=== PATIENT | female | born 1990 | race Caucasian/White ===

== ENCOUNTER 2020-03-30 12:50 | Outpatient (REF) | payer OTHER, SELFPAY | END 2020-03-30 12:51 | disposition home or self-care (01) | LOC: HO.LAB 12:50 | PROVIDERS: Visit Provider Internal Medicine | DX: Z20.828 Contact with and (suspected) exposure to other viral communicable diseases (principal) | CPT/HCPCS: C9803; U0003 ==

== ENCOUNTER 2020-06-22 03:38 | Emergency (ER) | payer OTHER, SELFPAY ==
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
[2020-06-22 03:50] VITALS: BP 127/81; PULSE 106; RESP 18; TEMP 36.8; O2SAT 98; BMI 26.4
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
== END 2020-06-22 06:46 ==
PROVIDERS: Emergency Provider Student in an Organized Health Care Education/Training Program
DX: S80.211A Abrasion, right knee, initial encounter (principal); S00.81XA Abrasion of other part of head, initial encounter; S00.83XA Contusion of other part of head, initial encounter; S20.212A Contusion of left front wall of thorax, initial encounter; S60.221A Contusion of right hand, initial encounter; Y04.2XXA Assault by strike against or bumped into by another person, initial encounter; Y93.9 Activity, unspecified; Y92.019 Unspecified place in single-family (private) house as the place of occurrence of the external cause; Y99.9 Unspecified external cause status
CPT/HCPCS: 70450; 70486; 72125; 73564; 99283; 99284

== ENCOUNTER 2022-11-05 10:32 | Emergency (ER) | payer OTHER, SELFPAY ==
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
[2022-11-05 10:38] VITALS: BP 144/94; PULSE 94; RESP 20; TEMP 36.6; O2SAT 97; BMI 24.8
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
[2022-11-05 11:17] LABS: Appearance Urine Cloudy; Color Urine Yellow; Glucose Urine UA Negative (Negative); Leukocyte Esterase Urine Moderate (2+) (Negative); Nitrite Urine Negative (Negative); PH 5.5 (5.0-9.0); Specific Gravity - Urine 1.025 (1.005-1.025); UMIC TRIGGER UACC YES; Urine Blood Large (3+) (Negative); Urine Ketones Trace mg/dL (Negative); Urine Protein 30 (1+) mg/dL (Neg-Trace)
[2022-11-05 11:21] LABS: UPreg QC Valid YES; Urine Pregnancy NEGATIVE (NEGATIVE)
[2022-11-05 11:23] LABS: Bacteria Urine 1+ (None Seen); RBC Urine >20 /HPF (0-2); UACC Culture Trigger YES; WBC Urine 21-50 /HPF (0-5)
[2022-11-05] MEDS: Lidocaine 4 % Patch ADH..PATCH 1 PATCH TRANSDERMA (11:39)
[2022-11-05] MEDS: Ketorolac Tromethamine 15 MG/ML VIAL 30 MG IM (11:39)
[2022-11-05 15:07] VITALS: BP 131/91; PULSE 82; RESP 18; TEMP 36.6; O2SAT 100
== END 2022-11-05 15:41 | disposition home or self-care (01) ==
PROVIDERS: Physician Assistant; Emergency Provider Emergency Medicine
DX: S32.029A Unspecified fracture of second lumbar vertebra, initial encounter for closed fracture (principal); S32.039A Unspecified fracture of third lumbar vertebra, initial encounter for closed fracture; S09.90XA Unspecified injury of head, initial encounter; S00.91XA Abrasion of unspecified part of head, initial encounter; N39.0 Urinary tract infection, site not specified; M54.16 Radiculopathy, lumbar region; Y04.2XXA Assault by strike against or bumped into by another person, initial encounter; Y93.9 Activity, unspecified; Y92.9 Unspecified place or not applicable; Y99.9 Unspecified external cause status
CPT/HCPCS: 74176; 81001; 81025; 87086; 96372; 99283; 99284; J1885

== ENCOUNTER 2024-08-15 09:44 | Emergency (ER) | payer OTHER, SELFPAY ==
[2024-08-15 09:55] VITALS: BP 129/69; PULSE 87; RESP 16; TEMP 36.6; O2SAT 100; BMI 25.7
--- NOTE | 2024-08-15 14:31 | ED_ITS ---
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 Patient states that over the last week she has had right sided ear pain after recently swimming. Patient denies any dizziness, lightheadedness, abdominal pain, nausea, vomiting, fever, chills, blurry vision, double vision, loss of vision, chest pain, difficulty breathing, shortness of breath, back pain, night sweats, pain with urination, increased urinary frequency, increased urinary urgency, blood in her urine or stool, syncope or a near syncopal episode, recent trauma or falls, bowel incontinence, bladder incontinence, or any other complaints at this time. Onset (ago): week(s) (1) Location: right (ear) Relieving factors: none Exacerbating factors: none Associated symptoms: denies other symptoms Treatments prior to arrival: none Related Data Previous Rx's ?Medication ?Instructions ?Recorded cefuroxime axetil 250 mg tablet 250 mg PO BID 7 days #14 tabs 11/05/22 cyclobenzaprine 10 mg tablet 10 mg PO BEDTIME PRN muscle spasm 11/05/22 #7 tabs ketorolac 10 mg tablet 10 mg PO TID PRN pain 5 days #15 11/05/22 tabs lidocaine 5 % topical patch 1 patch topical DAILY PRN pain #15 11/05/22 ea amoxicillin 875 mg tablet 875 mg PO BID 5 days #10 tabs 08/15/24 ciprofloxacin 0.3 %-dexamethasone 4 drp otic (ear) left BID 7 days 08/15/24 0.1 % ear drops,suspension #7.5 mL Allergies Allergy/AdvReac Type Severity Reaction Status Date / Time No Known Allergies Allergy Mild NOT Verified 08/15/24 09:59 APPLICABLE Review of Systems Constitutional: Constitutional: Reports no additional constitutional complaints, Denies chills, Denies fever(s) and Denies night sweats Eyes: Eyes: Reports no additional eye complaints, Denies blurry vision, Denies change in vision, Denies diplopia, Denies eye discharge, Denies loss of vision and Denies eye pain ENT: Denies dizziness Comments: right ear pain Cardiovascular: Cardiovascular: Reports no additional cardiovascular complaints, Denies chest pain, Denies lightheadedness, Denies Loss of Consciousness and Denies dyspnea Respiratory: Respiratory: Reports no additional respiratory complaints and Denies dyspnea Gastrointestinal: Gastrointestinal: Reports no additional gastrointestinal complaints, Denies abdominal pain, Denies melena, Denies hematochezia, Denies change in bowel habits and Denies change in stool character Genitourinary: Genitourinary: Denies hematuria, Denies urinary frequency, Denies dysuria, Denies urinary incontinence, Denies urinary hesitancy and Denies urinary urgency Musculoskeletal: Musculoskeletal: Reports no additional musculoskeletal complaints, Denies numbness and Denies tingling Neurologic: Denies dizziness, Denies loss of vision, Denies numbness and Denies tingling Psychiatric: Psychiatric: Reports no additional psychiatric complaints Endocrine: Endocrine: Reports no additional endocrine complaints Hematologic/Lymphatic: Hematologic/Lymphatic: Reports no additional hematologic/lymphatic complaints Allergic/Immunologic: Allergic/Immunologic: Reports no additional al lergic/immunologic complaints PMFSH Past Medical History Attestation statement: The following information was validated with the patient. Source: old records reviewed and nursing notes reviewed Social History Social History Advance Directives: No Advance Directives Information Provided: Yes Do you have a plan to hurt others: No Plan Physical Exam ED Vital Signs: Vital Signs - 24 hr 08/15/24 09:55 08/15/24 14:35 Temperature 97.9 F 97.9 F Pulse Rate 87 87 Respiratory Rate 16 16 Blood Pressure 129/69 129/69 Pulse Oximetry 100 100 Oxygen Delivery Method Room Air Room Air BMI result Body Mass Index 25.7 Const General: cooperative, no acute distress, alert and awake Nutritional Appearance: well nourished Orientation/consciousness: patient oriented x3 Limitations: no limitations HENMT Head: Yes normal to inspection and Yes atraumatic Ears: hearing grossly normal bilaterally, external ears normal, Abnormal EAC present erythema on the right and EAC tenderness on the right and TM abnormal erythematous on the right General nose exam: Normal external nose present, no nasal discharge noted and no epistaxis Face and sinus: Yes normal facial exam, No abrasion and No laceration Mouth: Normal oral and palatal mucosa present, no drooling and no muffled voice Eyes General: appearance normal, both eyes and all related structures Periorbital: periorbital findings normal Eyelids: Yes eyelids normal Conjunctivae: conjunctivae normal Pupils: Equal, round and reactive pupils present EOM: EOMs intact bilaterally Neck Neck: Yes normal visual inspection, Yes full ROM and Yes no lymphadenopathy Chest Chest palpation & inspection: normal inspection of the chest Resp Effort & Inspection: normal respiratory effort and able to speak in complete sentences GI Inspection: Yes normal to inspection Neuro General: patient oriented x3, moves all extremities and CN's II-XI intact bilaterally Cranial nerves: Yes Equal, round and reactive pupils present Cognition (Neuro): normal cognition Extrem General: Yes normal to inspection, Yes full ROM and Yes capillary refill normal Psych Appearance: grossly normal Mental Status: mental status grossly normal Affect: normal affect Attitude: cooperative Thought process: Normal thought process present Thought content: Normal thought content present Insight: Good insight present (Psych) Medical Decision Making Medical Decision Making MDM Narrative: Patient is a 34 year old assigned female at with no reported medical history presenting to the emergency department today with right sided ear pain. Patient's physical exam was as noted in the physical exam portion of this note and most consistent with otitis media and otitis externa. I explained my physical exam findings to the patient. I answered all questions asked by the patient. I stressed the importance of the patient taking her medication as directed (either prescribed or as the over the counter packaging recommends). I stressed the importance of the patient following up with her primary care provider. I stressed the importance of the patient returning to the emergency department immediately if her symptoms were to worsen or if she were to develop any dizziness, shortness of breath, difficulty breathing, chest pain, blurry vision, loss of vision, nausea, vomiting, abdominal pain, fever, chills, back pain, or any other complaints. Patient verbalized agreement and understanding with this treatment plan and discharge. Differential Diagnosis Differential Diagnoses: The differential diagnosis associated with the presentation includes Otitis media Otitis externa Admission/Observation Consideration of admission/observation: Escalation of care including admission/observation considered Patient would have been admitted to the hospital had her clinical presentation warranted hospital admission. Prescription Management I considered prescription management with: Antibiotic (patient prescribed antibiotics for R OM and OE) Discharge Plan Discharge Clinical Impression: Otitis externa, Otitis media Patient Disposition: Home, Self-Care Instructions: Otitis Externa (DC), How to Use Ear Drops (ED), Ear Infection (ED) Additional Instructions: Follow up with your primary care provider. Return to the emergency department immediately if your symptoms worsen or if you develop any dizziness, shortness of breath, difficulty breathing, chest pain, blurry vision, loss of vision, nausea, vomiting, abdominal pain, fever, chills, back pain, or any other complaints. Marylou?seguimiento?con de santiago m?dico de atenci?n primaria. Acuda inmediatamente al servicio de urgencias si soo s?ntomas empeoran o si presenta falta de aliento, dificultad para respirar, dolor tor?cico, mareos, aturdimiento, dolor de espalda, dolor abdominal, fiebre, escalofr?os o cualquier otro s?ntoma. Please see the information below about our Patient Portal. If you are not yet enrolled in the [facility] Patient Portal, you will receive an enrollment email invitation following your visit to any [facility] care setting. You may also self-enroll in the Patient Portal by visiting our website: [email or web address] The following information is required to access the Patient Portal: - Your [facility] Medical Record Number - Your personal home email address (must match what is in your electronic medical record, Registration staff can assist with this) - Name - Date of Capabilities of the Patient Portal: - Message some providers - View upcoming appointments - Access your health summary, medical history, and visit history - View current conditions and allergies - View procedure and lab results - View your medications, including guidelines, side effects, and precautions - Complete pre-appointment questionnaires requested by your provider - Ready summary reports of your office visits and procedures To access the Patient Portal Mobile Lizandro, follow these directions: - Search Milo in the Lizandro Store or [employer] Store - Download the Lizandro - Search for [facility] - Enter your login/password Portal del paciente Si usted no esta inscrito en el portal de pacientes de [facility], recibira estela invitacion de inscripcion despues de de santiago visita al [facility] o al [facility] via correo electronico. Tambien puede inscribirse voluntariamente en el portal de pacientes visitando nuestra pagina web: [email or web address] La siguiente informacion sera requerida para acceder al portal: - De Santiago bob de historia medica de [facility] - De Santiago direccion de correo electronico personal - Nombre - Fecha de nacimiento Capacidades: Las siguientes capacidades estan disponibles en el portal de pacientes: - Enviar mensajes a algunos doctores - Verificar proximas citas - Acceso a de santiago historial de zoila, registro medico e historial de visitas - Tamika las condiciones actuales y alergias tamika procedimientos y resultados del laboratorio - Tamika soo medicamentos, incluyendo las pautas - Efectos secundarios y precauciones - Completar o llenar formularios / cuestionarios de - Citas solicitadas por de santiago doctor - Leer los resumenes de reportes medicos de soo visitas y procedimientos Catie acceder a la aplicacion movil: - Busque Milo en la Lizandro Store o [employer] Store - Descargue la aplicacion - Busque [facility] - Ingrese de santiago nombre de usuario / Contrasena Prescriptions: New ciprofloxacin-dexamethasone 0.3-0.1 % drops,suspension 4 drp otic (ear) left BID 7 Days Qty: 7.5 0RF amoxicillin 875 mg tablet 875 mg PO BID 5 Days Qty: 10 0RF No Action cyclobenzaprine 10 mg tablet 10 mg PO BEDTIME PRN (Reason: muscle spasm) Qty: 7 0RF ketorolac 10 mg tablet 10 mg PO TID PRN (Reason: pain) 5 Days Qty: 15 0RF lidocaine 5 % adhesive patch,medicated 1 patch topical DAILY PRN (Reason: pain) Qty: 15 0RF Rx Instructions: leave on most painful area for up to 12 hrs cefuroxime axetil 250 mg tablet 250 mg PO BID 7 Days Qty: 14 0RF Referrals: [facility] Family Medicine [Provider Group] (Call to establish and follow up with a primary care provider. If you already have a primary care provider, please follow up with them. Telefone para estabelecer e fazer o acompanhamento com um prestador de cuidados prim?thurman. Se j? tiver um prestador de cuidados prim?thurman, contacte-o.) [facility] Primary CareTiff [Provider Group] (Call to establish and follow up with a primary care provider. If you already have a primary care provider, please follow up with them. Telefone para estabelecer e fazer o acompanhamento com um prestador de cuidados prim?thurman. Se j? tiver um prestador de cuidados prim?thurman, contacte-o.) [facility] Primary Care[facility] [Provider Group] (Call to establish and follow up with a primary care provider. If you already have a primary care provider, please follow up with them. Telefone para estabelecer e fazer o acompanhamento com um prestador de cuidados prim?thurman. Se j? tiver um prestador de cuidados prim?thurman, contacte-o.) [facility] Primary CareMahendra [Provider Group] (Call to establish and follow up with a primary care provider. If you already have a primary care provider, please follow up with them. Telefone para estabelecer e fazer o acompanhamento com um prestador de cuidados prim?thurman. Se j? tiver um prestador de cuidados prim?thurman, contacte-o.) Stand Alone Forms: Work/School Release Interventions: ED Discharge Assessment Last Done: 08/15/24 14:35 Discharge Date/Time: 08/15/24 14:36 Print Language: Yi
[2024-08-15 14:35] VITALS: BP 129/69; PULSE 87; RESP 16; TEMP 36.6; O2SAT 100
== END 2024-08-15 14:36 | disposition home or self-care (01) ==
PROVIDERS: Emergency Provider Emergency Medicine
DX: H92.01 Otalgia, right ear (principal); H60.91 Unspecified otitis externa, right ear; H66.91 Otitis media, unspecified, right ear
CPT/HCPCS: 99282; 99283

== ENCOUNTER 2024-08-20 12:31 | Emergency (ER) | payer OTHER, SELFPAY ==
[2024-08-20 12:42] VITALS: BP 137/90; PULSE 87; RESP 16; TEMP 36.6; O2SAT 100; BMI 22.3
--- NOTE | 2024-08-20 12:45 | ED_ITS ---
HPI - General Adult General Chief complaint: Ear Problems Stated complaint: Right ear pain Time Seen by Provider: 08/20/24 12:59 Source: patient, RN notes reviewed and old records reviewed Mode of arrival: ambulatory History of Present Illness ED Provider: She Dobson PA-C [facility] narrative: 34-year-old Citizen Of [place]-speaking female with past medical history of recently diagnosed otitis media and externa currently on Augmentin and Ciprodex drops since 08/15/2024 after ED evaluation, presenting to the ED complaining of persistent right ear pain no radiating to right jaw. Admits to getting wax out at home performed by friend. Reports ear feels blocked. Denies fever, chills, recent dental procedures, difficulty or inability to swallow Related Data Previous Rx's ?Medication ?Instructions ?Recorded cefuroxime axetil 250 mg tablet 250 mg PO BID 7 days #14 tabs 11/05/22 cyclobenzaprine 10 mg tablet 10 mg PO BEDTIME PRN muscle spasm 11/05/22 #7 tabs ketorolac 10 mg tablet 10 mg PO TID PRN pain 5 days #15 11/05/22 tabs lidocaine 5 % topical patch 1 patch topical DAILY PRN pain #15 11/05/22 ea amoxicillin 875 mg tablet 875 mg PO BID 5 days #10 tabs 08/15/24 ciprofloxacin 0.3 %-dexamethasone 4 drp otic (ear) left BID 7 days 08/15/24 0.1 % ear drops,suspension #7.5 mL Allergies Allergy/AdvReac Type Severity Reaction Status Date / Time No Known Allergies Allergy Mild NOT Verified 08/20/24 12:45 APPLICABLE Review of Systems Review of Systems: Yes all other systems are reviewed and are negative Constitutional: Constitutional: Reports as per [facility] Past Medical History Attestation statement: The following information was validated with the patient. Source: old records reviewed Social History Social History Advance Directives: No Advance Directives Information Provided: No Do you have a plan to hurt others: No Plan Physical Exam ED Vital Signs: Vital Signs - 24 hr 08/20/24 12:42 08/20/24 16:08 Temperature 97.8 F 98.1 F Pulse Rate 87 88 Respiratory Rate 16 18 Blood Pressure 137/90 H 138/88 Pulse Oximetry 100 99 Oxygen Delivery Method Room Air Room Air BMI result Body Mass Index 22.3 Const General: cooperative, healthy appearing and no acute distress Orientation/consciousness: patient oriented x3 Limitations: no limitations HENMT Head: Yes normal to inspection and Yes atraumatic Ears: hearing grossly normal bilaterally, mastoids normal, Abnormal EAC present cerumen impaction on the right and excessive cerumen, external ear abnormal auricular tenderness and unable to visualize TM on the right (Due to cerumen impaction) General nose exam: Normal external nose present Face and sinus: Yes normal facial exam Mouth: Normal oral and palatal mucosa present and no drooling Throat: Yes posterior oropharynx normal, Yes tonsils normal, Yes uvula midline, No peritonsillar mass, No uvula laterally displaced and No uvular edema Eyes General: appearance normal, both eyes and all related structures EOM: EOMs intact bilaterally Neck Neck: Yes normal visual inspection and Yes no meningeal signs Resp Effort & Inspection: normal respiratory effort and no respiratory distress Cardio Rate: regular rate Skin Rashes: no rashes Wounds: no wounds Neuro General: patient oriented x3, tone normal and no meningeal signs Cranial nerves: Yes CN's II-XII intact bilaterally Gait exam (Neuro): Normal gait present Extrem General: Yes normal to inspection Course Course Course Narrative: This is a rapid medical exam performed by Aure Angel NP: Additional HPI, ROS, PE not included below will be deferred to primary provider. 08/20/24 12:45 Patient is a 34-year-old Citizen Of [place] speaking female presenting with ongoing R ear pain, starting to radiate to neck. Seen here on 08/15, d/c'd on ciprodex drops and amoxicillin no improvement. Friend states he candled patient's ear twice with significant amount of wax removed. Unable to visualize TM in triage due to cerumen impaction. -ear wax partially removed with curette and irrigation. Large amount of cerumen impaction still appreciated. Will soak with Colace >1600--multiple attempts performed to remove cerumen impaction, moderate amount of cerumen removed however large amount still retained. Recommended ENT follow-up. Patient can finish course of p.o. and topical antibiotics as previously prescribed although less likely symptoms related to infection and father due to cerumen impaction Results discussed with patient including worrisome signs and symptoms and strict return precautions, and when to return to the emergency department. They verbalized understanding and feel safe for discharge at this time. Medications Administered Discontinued Medications Generic Name Dose Route Start Last Admin Trade Name Aline PRN Reason Stop Dose Admin Docusate Sodium 100 mg 08/20/24 14:06 08/20/24 14:48 Docusate Sodium 100 Mg/10 Ml Liquid PO 08/20/24 14:07 100 mg ONCE ONE Administration Procedures Ear Wax Removal Right Ear: Cerumenolytic Used: Colace and 5-10% Sodium Bicarb solution Results: Re-examined: some cerumen remains and removal reattempted TM Examination: other (unable to visualize TM) Patient Tolerated Procedure: well and no complications Complications: no problems Technique: ear canal irrigated and ear canal curetted Medical Decision Making Medical Decision Making MDM Narrative: 34-year-old Citizen Of [place]-speaking female with past medical history of recently diagnosed otitis media and externa currently on Augmentin and Ciprodex drops since 08/15/2024 after ED evaluation, presenting to the ED complaining of persistent right ear pain no radiating to right jaw. On exam vital signs stable, NAD, nontoxic appearing, physical exam as noted above with appreciable cerumen impaction on the right. + auricle and external ear tenderness. No mastoid tenderness or erythema. Concern for cerumen impaction causing discomfort. Low suspicion for mastoiditis, chronic otitis externa Plan: Cerumen disimpaction Please refer to course for remaining clinical decision making, interpretation of labs/imaging results, and discussions with consultants and/or family members. Differential Diagnosis Differential Diagnoses: The differential diagnosis associated with the presentation includes As above External Record Review External record reviewed: Inpatient record, Office record, Outpatient record, Prior outpatient labs, Prior outpatient radiology, Primary care record and Outside ED record Tests considered The following testing was considered but not selected: As above Prescription Management I considered prescription management with: Other Chronic Conditions Patient?s care impacted by: Other Social Determinants Patient?s care significantly limited by Social Determinants of Health including: Other Social Determinant of Health Discharge Plan Discharge Clinical Impression: Cerumen impaction Patient Disposition: Home, Self-Care Additional Instructions: You have a large amount of ear wax stuck in your ear. We attempted to remove it, got a good amount out however a large amount still remains You need to follow up with an Ear Nose Throat specialist, call Thursday morning Continue taking previously prescribed antibiotics and drops You need to soak your ear with 1:1 solution of normal saline and peroxide at home to soften your ear wax. There were also [id number] ear wax softeners. If your symptoms persist or worsen her pain is unbearable return to the ED Prescriptions: No Action ciprofloxacin-dexamethasone 0.3-0.1 % drops,suspension 4 drp otic (ear) left BID 7 Days Qty: 7.5 0RF amoxicillin 875 mg tablet 875 mg PO BID 5 Days Qty: 10 0RF cyclobenzaprine 10 mg tablet 10 mg PO BEDTIME PRN (Reason: muscle spasm) Qty: 7 0RF ketorolac 10 mg tablet 10 mg PO TID PRN (Reason: pain) 5 Days Qty: 15 0RF lidocaine 5 % adhesive patch,medicated 1 patch topical DAILY PRN (Reason: pain) Qty: 15 0RF Rx Instructions: leave on most painful area for up to 12 hrs cefuroxime axetil 250 mg tablet 250 mg PO BID 7 Days Qty: 14 0RF Referrals: [facility] [Outside] [facility] [Outside] [facility] [Physician] - Stand Alone Forms: Work/School Release Print Language: Citizen Of [place]
[2024-08-20] MEDS: Docusate Sodium 100 MG/10 ML LIQUID PO (14:48)
[2024-08-20 16:08] VITALS: BP 138/88; PULSE 88; RESP 18; TEMP 36.7; O2SAT 99
[2024-08-20 16:35] VITALS: BP 138/88; PULSE 88; RESP 18; TEMP 36.7; O2SAT 99
== END 2024-08-20 16:36 | disposition home or self-care (01) ==
PROVIDERS: Emergency Provider Emergency Medicine
DX: H92.01 Otalgia, right ear (principal); H61.21 Impacted cerumen, right ear
CPT/HCPCS: 69209; 99282; 99283; 99284

== ENCOUNTER 2024-10-24 10:45 | Emergency (ER) | payer OTHER, SELFPAY ==
[2024-10-24 11:04] VITALS: BP 152/93; PULSE 105; RESP 18; TEMP 36.4; O2SAT 98; BMI 27.3
--- NOTE | 2024-10-24 12:26 | ED.GENADULT ---
HPI - General Adult General Chief complaint: Back Pain/Injury Stated complaint: hip pain Time Seen by Provider: 10/24/24 12:29 Source: patient and sequins stringer (all interactions with this patient facilitated with [place] [facility] [place] Mode of arrival: ambulatory Limitations: language barrier (all interactions with this patient facilitated with an [facility] [place] History of Present Illness ED Provider: Amalia Bowers PA-C HPI narrative: Patient is a 34 year old assigned female at with no reported medical history presenting to the emergency department today with left lower back pain. Patient states that over the last day she has had left lower back pain that radiates into her upper left leg. 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 Patient denies any dizziness, lightheadedness, abdominal pain, nausea, vomiting, fever, chills, blurry vision, double vision, loss of vision, chest pain, difficulty breathing, shortness of breath, night sweats, pain with urination, increased urinary frequency, increased urinary urgency, blood in her urine or stool, syncope or a near syncopal episode, recent trauma or falls, bowel incontinence, bladder incontinence, or any other complaints at this time. Onset (ago): day(s) (1) Location: back and left Relieving factors: none Exacerbating factors: none Associated symptoms: denies other symptoms Treatments prior to arrival: none Related Data Previous Rx's ?Medication ?Instructions ?Recorded cefuroxime axetil 250 mg tablet 250 mg PO BID 7 days #14 tabs 11/05/22 cyclobenzaprine 10 mg tablet 10 mg PO BEDTIME PRN muscle spasm 11/05/22 #7 tabs ketorolac 10 mg tablet 10 mg PO TID PRN pain 5 days #15 11/05/22 tabs lidocaine 5 % topical patch 1 patch topical DAILY PRN pain #15 11/05/22 ea amoxicillin 875 mg tablet 875 mg PO BID 5 days #10 tabs 08/15/24 ciprofloxacin 0.3 %-dexamethasone 4 drp otic (ear) left BID 7 days 08/15/24 0.1 % ear drops,suspension #7.5 mL cyclobenzaprine 5 mg tablet 5 mg PO TID PRN low back pain 7 10/24/24 days #21 tabs prednisone 20 mg tablet 20 mg PO DAILY 7 days #7 tabs 10/24/24 Allergies Allergy/AdvReac Type Severity Reaction Status Date / Time No Known Allergies Allergy Mild NOT Verified 10/24/24 11:05 APPLICABLE Review of Systems Constitutional: Constitutional: Reports no additional constitutional complaints, Denies chills, Denies fever(s) and Denies night sweats Eyes: Eyes: Reports no additional eye complaints, Denies blurry vision, Denies change in vision, Denies diplopia, Denies eye discharge, Denies loss of vision and Denies eye pain ENT: Denies dizziness Cardiovascular: Cardiovascular: Reports no additional cardiovascular complaints, Denies chest pain, Denies lightheadedness, Denies Loss of Consciousness and Denies dyspnea Respiratory: Respiratory: Reports no additional respiratory complaints and Denies dyspnea Gastrointestinal: Gastrointestinal: Reports no additional gastrointestinal complaints, Denies abdominal pain, Denies melena, Denies hematochezia, Denies change in bowel habits and Denies change in stool character Genitourinary: Genitourinary: Denies hematuria, Denies urinary frequency, Denies dysuria, Denies urinary incontinence, Denies urinary hesitancy and Denies urinary urgency Musculoskeletal: Musculoskeletal: Reports no additional musculoskeletal complaints, Reports back pain, Denies numbness and Denies tingling Neurologic: Denies dizziness, Denies loss of vision, Denies numbness and Denies tingling Psychiatric: Psychiatric: Reports no additional psychiatric complaints Endocrine: Endocrine: Reports no additional endocrine complaints Hematologic/Lymphatic: Hematologic/Lymphatic: Reports no additional hematologic/lymphatic complaints Allergic/Immunologic: Allergic/Immunologic: Reports no additional allergic/immunologic complaints [facility] Past Medical History Attestation statement: The following information was validated with the patient. Source: old records reviewed and nursing notes reviewed Social History Social History Advance Directives: No Advance Directives Information Provided: Yes Physical Exam ED Vital Signs: Vital Signs - 24 hr 10/24/24 11:04 10/24/24 12:54 10/24/24 12:55 Temperature 97.6 F 97.2 F 97.2 F Pulse Rate 105 H 81 81 Respiratory Rate 18 18 18 Blood Pressure 152/93 H 124/86 124/86 Pulse Oximetry 98 98 98 Oxygen Delivery Method Room Air Room Air Room Air BMI result Body Mass Index 27.3 Const General: cooperative, no acute distress, alert and awake Nutritional Appearance: well nourished Orientation/consciousness: patient oriented x3 HENMT Head: Yes normal to inspection and Yes atraumatic Ears: hearing grossly normal bilaterally and external ears normal General nose exam: Normal external nose present, no nasal discharge noted and no epistaxis Face and sinus: Yes normal facial exam, No abrasion and No laceration Mouth: Normal oral and palatal mucosa present, no drooling and no muffled voice Eyes General: appearance normal, both eyes and all related structures Periorbital: periorbital findings normal Eyelids: Yes eyelids normal Conjunctivae: conjunctivae normal Pupils: Equal, round and reactive pupils present EOM: EOMs intact bilaterally Neck Neck: Yes normal visual inspection, Yes full ROM and Yes no lymphadenopathy Resp Effort & Inspection: normal respiratory effort and able to speak in complete sentences Neuro General: patient oriented x3, moves all extremities and CN's II-XI intact bilaterally Cranial nerves: Yes Equal, round and reactive pupils present Cognition (Neuro): normal cognition Extrem General: Yes normal to inspection, Yes full ROM and Yes capillary refill normal Psych Appearance: grossly normal Mental Status: mental status grossly normal Affect: normal affect Attitude: cooperative Thought process: Normal thought process present Thought content: Normal thought content present Insight: Good insight present (Psych) Medical Decision Making Medical Decision Making MDM Narrative: Patient is a 34 year old assigned female at with no reported medical history presenting to the emergency department today with left lower back pain. Patient's physical exam was unremarkable. Patient's clinical presentation is most consistent with left sided sciatica. I explained my physical exam findings to the patient. I answered all questions asked by the patient. I stressed the importance of the patient taking her medication as directed (either prescribed or as the over the counter packaging recommends). I stressed the importance of the patient following up with her primary care provider. I stressed the importance of the patient returning to the emergency department immediately if her symptoms were to worsen or if she were to develop any dizziness, shortness of breath, difficulty breathing, chest pain, blurry vision, loss of vision, nausea, vomiting, abdominal pain, fever, chills, back pain, or any other complaints. Patient verbalized agreement and understanding with this treatment plan and discharge. Differential Diagnosis Differential Diagnoses: The differential diagnosis associated with the presentation includes Left sided sciatica Low back pain Admission/Observation Consideration of admission/observation: Escalation of care including admission/observation considered Patient would have been admitted to the hospital had her clinical presentation warranted hospital admission. Tests considered The following testing was considered but not selected: I considered obtaining an x-ray of the lumbar spine however, the patient's current clinical presentation does not warrant this. I discussed this with the patient who verbalized understanding and agreement. Prescription Management I considered prescription management with: Pain Medication (Patient prescribed pain medication. ) Discharge Plan Discharge Clinical Impression: Sciatica Patient Disposition: Home, Self-Care Instructions: Sciatica (ED), Lower Back Exercises (ED) Additional Instructions: Follow up with your primary care provider. Return to the emergency department immediately if your symptoms worsen or if you develop any dizziness, shortness of breath, difficulty breathing, chest pain, blurry vision, loss of vision, nausea, vomiting, abdominal pain, fever, chills, back pain, or any other complaints. Marylou?seguimiento?con de la cruz m?dico de atenci?n primaria. Acuda inmediatamente al servicio de urgencias si soo s?ntomas empeoran o si presenta falta de aliento, dificultad para respirar, dolor tor?cico, mareos, aturdimiento, dolor de espalda, dolor abdominal, fiebre, escalofr?os o cualquier otro s?ntoma. Please see the information below about our Patient Portal. If you are not yet enrolled in the [facility] Patient Portal, you will receive an enrollment email invitation following your visit to any [facility] care setting. You may also self-enroll in the Patient Portal by visiting our website: [email or web address] The following information is required to access the Patient Portal: - [place] [facility] [place] - Your personal home email address (must match what is in your electronic medical record, Registration staff can assist with this) - Name - Date of Capabilities of the Patient Portal: - Message some providers - View upcoming appointments - Access your health summary, medical history, and visit history - View current conditions and allergies - View procedure and lab results - View your medications, including guidelines, side effects, and precautions - Complete pre-appointment questionnaires requested by your provider - Ready summary reports of your office visits and procedures To access the Patient Portal Mobile Lizandro, follow these directions: - Search [employer] in the Lizandro Store or [employer] Store - Download the Lizandro - Search for [facility] - Enter your login/password Portal del paciente Si usted no esta inscrito en el portal de pacientes de [facility] y [facility], recibira estela invitacion de inscripcion despues de de la cruz visita al [facility] o al [facility] via correo electronico. Tambien puede inscribirse voluntariamente en el portal de pacientes visitando nuestra pagina web: [email or web address] La siguiente informacion sera requerida para acceder al portal: - De [place] Cruz bob de historia medica de [facility] - De La Cruz direccion de correo electronico personal - Nombre - Fecha de nacimiento Capacidades: Las siguientes capacidades estan disponibles en el portal de pacientes: - Enviar mensajes a algunos doctores - Verificar proximas citas - Acceso a de la cruz historial de zoila, registro medico e historial de visitas - Tamika las condiciones actuales y alergias tamika procedimientos y resultados del laboratorio - Tamika soo medicamentos, incluyendo las pautas - Efectos secundarios y precauciones - Completar o llenar formularios / cuestionarios de - Citas solicitadas por de la cruz doctor - Leer los resumenes de reportes medicos de soo visitas y procedimientos Kinta acceder a la aplicacion movil: - Busque [employer] en la Lizandro Store o [employer] Store - Descargue la aplicacion - [facility] - Ingrese de la cruz nombre de usuario / Contrasena Prescriptions: New cyclobenzaprine 5 mg tablet 5 mg PO TID PRN (Reason: low back pain) 7 Days Qty: 21 0RF prednisone 20 mg tablet 20 mg PO DAILY 7 Days Qty: 7 0RF No Action ciprofloxacin-dexamethasone 0.3-0.1 % drops,suspension 4 drp otic (ear) left BID 7 Days Qty: 7.5 0RF amoxicillin 875 mg tablet 875 mg PO BID 5 Days Qty: 10 0RF cyclobenzaprine 10 mg tablet 10 mg PO BEDTIME PRN (Reason: muscle spasm) Qty: 7 0RF ketorolac 10 mg tablet 10 mg PO TID PRN (Reason: pain) 5 Days Qty: 15 0RF lidocaine 5 % adhesive patch,medicated 1 patch topical DAILY PRN (Reason: pain) Qty: 15 0RF Rx Instructions: leave on most painful area for up to 12 hrs cefuroxime axetil 250 mg tablet 250 mg PO BID 7 Days Qty: 14 0RF Referrals: [facility] [place] [Provider Group] (Call to establish and follow up with a primary care provider. If you already have a primary care provider, please follow up with them.) [facility] [place], T[facility] [Provider Group] (Call to establish and follow up with a primary care provider. If you already have a primary care provider, please follow up with them.) [facility] [place] Care[place] [Provider Group] (Call to establish and follow up with a primary care provider. If you already have a primary care provider, please follow up with them.) [facility] [place], WILFRIDO [Provider Group] (Call to establish and follow up with a primary care provider. If you already have a primary care provider, please follow up with them.) [facility] [place] Care[place]hendra [Provider Group] (Call to establish and follow up with a primary care provider. If you already have a primary care provider, please follow up with them.) Stand Alone Forms: Work/School Release Interventions: ED Discharge Assessment Last Done: 10/24/24 12:55 Discharge Date/Time: 10/24/24 12:56 Print Language: Turkish
[2024-10-24 12:54] VITALS: BP 124/86; PULSE 81; RESP 18; TEMP 36.2; O2SAT 98
[2024-10-24 12:55] VITALS: BP 124/86; PULSE 81; RESP 18; TEMP 36.2; O2SAT 98
== END 2024-10-24 12:56 | disposition home or self-care (01) ==
PROVIDERS: Emergency Provider Emergency Medicine Emergency Medical Services
DX: M54.42 Lumbago with sciatica, left side (principal)
CPT/HCPCS: 99282; 99283